=== PATIENT | female | born 2000 | race Caucasian/White ===

== ENCOUNTER 2019-10-04 20:46 | Emergency (ER) | END 2019-10-04 21:10 | disposition left against medical advice (07) | LOC: ER 20:46 | DX: Z53.21 Procedure and treatment not carried out due to patient leaving prior to being seen by health care provider (principal) ==

== ENCOUNTER 2019-10-13 10:57 | Emergency (ER) | payer OTHER ==
[2019-10-13 11:11] VITALS: BP 107/52
[2019-10-13] MEDS ORDERED: KETOROLAC TROMETHAMINE INJ/PF 30 MG/1 ML SDV IM ONE (11:15)
[2019-10-13] MEDS ORDERED: METHYLPREDNISOLONE INJ 125 MG/2 ML SDV IM ONE (11:15)
--- NOTE | 2019-10-13 11:19 | ER Document Report ---
HPI - HPI Time Seen by Provider: 10/13/19 11:03 Pain Level: 4 Notes: Patient is a 19-year-old female with no significant past medical history who presents complaining of lower back pain for the past 10 days without precipitating event or injury. Patient states the pain is to her lower back and does not radiate. Patient states that she will occasionally feel some tingling to the tip of her left hand and to her toes, but is not consistent. Patient states that she did have an x-ray as well as a urinalysis performed by an outside clinic which was unremarkable otherwise. She has been able to eat and drink without difficulty. She is urinating normally and having normal bowel movements. No history of diabetes, spinal abscess, back surgery, recent injections, or IV drug abuse. Denies any headache, fever, neck pain, changes in vision/speech/mentation/hearing, URI, sore throat, chest pain, palpitations, syncope, cough, shortness of breath, wheeze, dyspnea, abdominal pain, nausea/vomiting/diarrhea, urinary retention, dysuria, hematuria, loss of control of bowel or bladder, numbness, saddle anesthesia, muscle paralysis/weakness, or rash. - ROS Systems Reviewed and Negative: Yes All other systems reviewed and negative Past Medical History - Social History Smoking Status: Never Smoker Chew tobacco use (# tins/day): No Frequency of alcohol use: None Drug Abuse: None Family History: Reviewed & Not Pertinent Patient has suicidal ideation: No Patient has homicidal ideation: No Vertical Provider Document - CONSTITUTIONAL Agree With Documented VS: Yes Notes: PHYSICAL EXAMINATION: GENERAL: Well-appearing, well-nourished and in no acute distress. LUNGS: Breath sounds clear to auscultation bilaterally and equal. No wheezes rales or rhonchi. HEART: Regular rate and rhythm without murmurs, rubs, gallops. ABDOMEN: Soft, nontender, nondistended abdomen. No guarding, no rebound. Normal bowel sounds present. No CVA tenderness bilaterally. No pulsatile mass Musculoskeletal: LE's b/l: FROM to passive/active. Strength 5+/5. No deficits noted. No bony tenderness of extremities. Back: FROM to passive/active. Strength 5+/5. No vertebral point tenderness, stepoffs, or deformities. No other bony tenderness, erythema, swelling, or ecchymosis. SLR negative b/l. + mild tenderness to the L-paraspinal mm b/l. Mild spasming. No SI jt tenderness. No foot drop Extremities: No cyanosis, clubbing, or edema b/l. Peripheral pulses 2+. Capillary refill less than 2 seconds. NEUROLOGICAL: Normal speech, normal gait. Normal sensory, motor exams. Reflexes 2+ b/l. PSYCH: Normal mood, normal affect. SKIN: Warm, Dry, normal turgor, no rashes or lesions noted. - INFECTION CONTROL TRAVEL OUTSIDE OF THE [place] IN LAST 30 DAYS: No Course - Re-evaluation Re-evalutation: 10/13/19 11:17 I did review with Dr. Adames who is in agreement with dispo/plan: Patient is an afebrile, well-hydrated, 19-year-old female who presents to the ED with acute low back pain. Vitals are acceptable. PE is otherwise unremarkable for any focal neurological deficits. Patient was given Toradol and solumedrol IM. She has no significant tachycardia, tachypnea, or hypoxia. She is nontoxic-appearing and is tolerating p.o. without difficulties. There are no signs of infection. No other red flag symptoms noted. No other labs or imaging warranted at this time based on H&P. Low suspicion for any meningitis, fracture, expanding/ruptured AAA, cauda equina syndrome, epidural mass lesion/abscess, herniated disc causing severe spinal stenosis, or other systemic infection at this time. Patient is aware that this condition can change from initial presentation and that she needs monitor symptoms closely for any acute changes. Pt has naproxen and robaxin at home. Conservative measures otherwise for symptoms. Recheck with your PCM in 3-5 days. Consider consult with orthopedic/physical therapy. Return to the ED with any worsening/concerning symptoms otherwise as reviewed discharge. Patient is in agreement. - Vital Signs Vital signs: Temp Pulse Resp BP Pulse Ox 98.7 F 82 18 107/52 L 99 10/13/19 11:10 10/13/19 11:10 10/13/19 11:10 10/13/19 11:10 10/13/19 11:10 Discharge - Discharge Clinical Impression: Low back pain Qualifiers: Chronicity: acute Back pain laterality: bilateral Sciatica presence: without sciatica Qualified Code(s): M54.5 - Low back pain Condition: Stable Disposition: HOME, SELF-CARE Instructions: Low Back Pain ([facility]) Additional Instructions: Rest, Ice Tylenol/ibuprofen as needed Light stretches daily Strength exercises as able Moist heat and massage may help F/u with your PCP in 3-5 days for a recheck Consider consult(s) with Orthopedics/physical therapy for ongoing/worsening symptoms Return to the ED with any worsening symptoms and/or development of fever, headache, chest pain, palpitations, syncope, shortness of breath, trouble breathing, abdominal pain, n/v/d, blood in stool/urine, loss of control of bowel/bladder, urinary retention, muscle weakness/paralysis, saddle anesthesia, numbness/tingling, or other worsening symptoms that are concerning to you. Referrals: JERRY MANCIA JR, [ACTIVE PROVISIONAL STAFF] - Follow up as needed
== END 2019-10-13 12:12 | disposition home or self-care (01) ==
LOC: ER 10:57
DX: M54.5 Low back pain (principal); R20.2 Paresthesia of skin; R25.2 Cramp and spasm
CPT/HCPCS: J2930; J1885; 96372; 99283

== ENCOUNTER 2019-12-21 15:56 | Emergency (ER) | payer OTHER ==
--- NOTE | 2019-12-21 16:09 | ER Document Report ---
ED Medical Screen (RME) - General Chief Complaint: OB Problem (<20wks) Stated Complaint: ABDOMINAL PAIN Time Seen by Provider: 12/21/19 16:03 TRAVEL OUTSIDE OF THE [place] IN LAST 30 DAYS: No - HPI Notes: 12/21/19 16:07 19-year-old female 2 para 0, 6 weeks presents to the emergency room for nausea vomiting and abdominal pain. Has not tried any [id number] medication. Worse with time, nothing makes better. Patient lost her 2 other pregnancies and miscarriages at 7 and 9 weeks. No vaginal bleeding. Worse with time, nothing makes better. No fevers, chills. I have greeted and performed a rapid initial assessment of this patient. A comprehensive ED assessment and evaluation of the patient, analysis of test results and completion of the medical decision making process will be conducted by additional ED providers. PHYSICAL EXAMINATION: GENERAL: Well-appearing, well-nourished and in no acute distress. HEAD: Atraumatic, normocephalic. CV: s1, s2 regular LUNGS: No respiratory distress - Related Data Allergies/Adverse Reactions: No Known Allergies Allergy (Unverified 10/13/19 11:03) Physical Exam - Vital signs Vitals: Temp Pulse Resp BP Pulse Ox 98.1 F 70 18 130/62 H 97 12/21/19 15:59 12/21/19 15:59 12/21/19 15:59 12/21/19 15:59 12/21/19 15:59 Course - Vital Signs Vital signs: Temp Pulse Resp BP Pulse Ox 98.1 F 70 18 130/62 H 97 12/21/19 15:59 12/21/19 15:59 12/21/19 15:59 12/21/19 15:59 12/21/19 15:59
[2019-12-21 16:51] LABS: ABSOLUTE LYMPHOCYTES (AUTO) 2.9 10^3/uL (0.5-4.7); ABSOLUTE MONOCYTES (AUTO) 0.7 10^3/uL (0.1-1.4); ABSOLUTE NEUT (AUTO) 8.4 10^3/uL (1.7-8.2); BASOPHILS % (AUTO) 0.2 % (0-2); EOSINOPHILS % (AUTO) 0.3 % (0-6); HEMATOCRIT 40.8 % (36.0-47.0); HEMOGLOBIN 14.6 g/dL (12.0-15.5); LYMPHOCYTES % (AUTO) 23.9 % (13-45); MEAN CORPUSCULAR HEMOGLOBIN 32.5 pg (27.0-33.4); MEAN CORPUSCULAR HGB CONC 35.8 g/dL (32.0-36.0); MEAN CORPUSCULAR VOLUME 91 fl (80-97); PLATELET COUNT 253 10^3/uL (150-450); RED BLOOD COUNT 4.49 10^6/uL (3.72-5.28); RED CELL DISTRIBUTION WIDTH 12.6 % (11.5-14.0); SEGMENTED NEUTROPHILS % (AUTO) 69.6 % (42-78); TOTAL CELLS COUNTED % (AUTO) 100 %; WHITE BLOOD COUNT 12.1 10^3/uL (4.0-10.5)
[2019-12-21 16:59] LABS: APPEARANCE,URINE CLEAR; BILIRUBIN,URINE NEGATIVE (NEGATIVE); COLOR,URINE YELLOW; GLUCOSE, URINE NEGATIVE (NEGATIVE); KETONES,URINE NEGATIVE (NEGATIVE); LEUKOCYTE ESTERASE,URINE NEGATIVE (NEGATIVE); NITRITE,URINE NEGATIVE (NEGATIVE); PROTEIN,URINE NEGATIVE (NEGATIVE); URINE SPECIFIC GRAVITY 1.009; UROBILINOGEN,URINE NEGATIVE mg/dL (<2.0)
[2019-12-21 17:08] LABS: ALBUMIN 4.6 g/dL (3.5-5.0); ALKALINE PHOSPHATASE 51 U/L (38-126); ANION GAP 9 (5-19); ASPARTATE AMINO TRANSFERASE 19 U/L (14-36); BILIRUBIN,TOTAL 0.6 mg/dL (0.2-1.3); BLOOD UREA NITROGEN 4 mg/dL (7-20); CALCIUM 9.7 mg/dL (8.4-10.2); CARBON DIOXIDE 28 mmol/L (22-30); CHLORIDE 98 mmol/L (98-107); GLUCOSE 93 mg/dL (75-110); POTASSIUM 3.8 mmol/L (3.6-5.0); TOTAL PROTEIN 7.3 g/dL (6.3-8.2)
--- NOTE | 2019-12-21 17:30 | RADIOLOGY REPORT (SQ) ---
EXAM DESCRIPTION: U/S OB TRANSVAGINAL W/O DOP IMAGES COMPLETED DATE/TIME: 12/21/2019 5:17 pm REASON FOR STUDY: 6 weeks , vomiting, abd pain COMPARISON: None. TECHNIQUE: Transvaginal static and realtime grayscale images acquired of the pelvis. Additional ann cted spectral and color Doppler images recorded. All images stored on PACs. bHCG: Not available. CLINICAL DATES: 6 week 2 day. LIMITATIONS: None. FINDINGS: FETUS: Single Living intrauterine . ULTRASOUND EGA: 6 week 6 day. ULTRASOUND DANIELLE: 08/09/2020. EFW: Not applicable less than 20 weeks. CRL: 0.82 cm. FHR: 121 beats per minute. SURVEY: No visualized anomalies. AMNIOTIC FLUID: Adequate amount. PLACENTA: Not yet developed due to early gestation. SUBCHORIONIC BLEED: No. SIZE OF BLEED: Not applicable. UTERUS: No masses. No anomalies. CERVICAL LENGTH: 2.8 cm. Closed. RIGHT ADNEXA: Normal ovary with normal vascular flow. No adnexal free fluid. 2.2 cm complex cyst. LEFT ADNEXA: Normal ovary with normal vascular flow. No adnexal free fluid. No adnexal masses. FREE FLUID: None. OTHER: No other significant finding. IMPRESSION: LIVING INTRAUTERINE . EGA 6 WEEK 6 DAY. Trimester of : First trimester - 0 to 13 weeks. TECHNICAL DOCUMENTATION: JOB ID: [id number] 2010 [employer]- All Rights Reserved Reading location - IP/workstation name: [email or web address]
[2019-12-21] MEDS ORDERED: DEXTROSE 5%-LACTATED RINGERS 1,000 ML IV ONE (17:56)
[2019-12-21] MEDS ORDERED: METOCLOPRAMIDE HCL INJ/PF 10 MG/2 ML SDV IV ONE (17:56)
--- NOTE | 2019-12-21 18:05 | ER Document Report ---
ED General - General Chief Complaint: OB Problem (<20wks) Stated Complaint: ABDOMINAL PAIN Time Seen by Provider: 12/21/19 16:03 Primary Care Provider: BIMAL ALDRICH MD [Primary Care Provider] - Follow up as needed TRAVEL OUTSIDE OF THE [place] IN LAST 30 DAYS: No - HPI Notes: Chief complaint: Nausea/vomiting in first trimester HPI: 19-year-old 3 para 0-0-2-0 with 2 previous spontaneous miscarriages now presents at approximately 6 weeks gestation complaining of multiple episodes of nausea and vomiting. Mild abdominal cramping. No vaginal bleeding or disc harge. No fever. No dysuria. No back pain. She has not tried any medications for nausea. She reports 3-4 episodes of vomiting earlier today. She has had no care yet but has her first OB visit scheduled for tomorrow. Her primary care physician has her on vitamins and she is on no other regular medication. Prior medical history is otherwise unremarkable. No known allergies. - Related Data Allergies/Adverse Reactions: No Known Allergies Allergy (Unverified 10/13/19 11:03) Home Medications: , multivitamin Past Medical History - General Information source: Patient, [facility] Records - Social History Smoking Status: Never Smoker Family History: Reviewed & Not Pertinent Patient has homicidal ideation: No Neurological Medical History: Reports: Hx Migraine Past Surgical History: Reports: Hx Appendectomy Review of Systems - Review of Systems Notes: Constitutional: Negative for fever. HENT: Negative for sore throat. Eyes: Negative for visual changes. Cardiovascular: Negative for chest pain. Respiratory: Negative for shortness of breath. Gastrointestinal: As per HPI. Genitourinary: As per HPI. Musculoskeletal: Negative for back pain. Skin: Negative for rash. Neurological: Negative for headaches, weakness or numbness. 10 point ROS negative except as marked above and in HPI. Physical Exam - Vital signs Vitals: Temp Pulse Resp BP Pulse Ox 98.1 F 70 18 130/62 H 97 12/21/19 15:59 12/21/19 15:59 12/21/19 15:59 12/21/19 15:59 12/21/19 15:59 - Notes Notes: GENERAL: Slender female approximately stated age appearing in no acute distress. SKIN: Good turgor no rashes. Slightly pale. HEAD: Normocephalic atraumatic. EYES: PERRLA. EOMI. Conjunctivae and sclerae clear. EARS: CANALS AND TMS CLEAR. NOSE: CLEAR. MOUTH: Tacky oral mucosa. Good dentition. No stridor or edema. No drooling. NECK: Supple. No masses or thyromegaly. No adenopathy. Carotids 2+ without bruits. No JVD. BACK: Symmetrical without tenderness. CHEST: Respirations unlabored. Breath sounds clear and symmetrical. HEART: Regular rhythm. No murmur gallop or rub. ABDOMEN: Soft nontender without masses, organomegaly or rebound. Bowel sounds normally active. No bruits. GENITALIA: Deferred. EXTREMITIES: No edema. No calf tenderness. Cap refill less than 1.5 seconds. Dorsalis pedis and posterior tibial pulses 3+ and symmetrical. NEUROLOGICAL: GCS 15. Alert and oriented x3. Normal gait. Fluent speech. Cranial nerves II through XII intact. Sensorimotor and cerebellar normal. Normal tone. PSYCHIATRIC: Appropriate affect. Course - Re-evaluation Re-evalutation: 12/21/19 18:03 Radiologist reports ultrasound shows IUP at 6 weeks EGA with no abnormalities appreciated. CBC and comprehensive metabolic profile are normal. Lipase is normal. Urinalysis is normal. We will treat the patient with a liter of IV D5LR and some IV metoclopramide and then reassess. 12/21/19 18:04 12/21/19 20:08 Patient is asymptomatic at this time and tolerating oral fluids without difficulty. She wants to go home and I think this is appropriate. - Vital Signs Vital signs: Temp Pulse Resp BP Pulse Ox 98.1 F 70 18 130/62 H 97 12/21/19 16:01 12/21/19 15:59 12/21/19 15:59 12/21/19 15:59 12/21/19 15:59 - Laboratory Result Diagrams: 12/21/19 16:35 12/21/19 16:35 Laboratory results interpreted by me: 12/21/19 12/21/19 12/21/19 16:17 16:35 16:35 WBC 12.1 H Absolute Neuts (auto) 8.4 H Sodium 134.9 L BUN 4 L Beta HCG, Quant 90988.00 H Urine Ascorbic Acid 40 H - Diagnostic Test Radiology reviewed: Reports reviewed - Per radiologist: Normal IUP 6 weeks EGA. Discharge - Discharge Clinical Impression: associated emesis, IUP 6 weeks EGA Condition: Stable Disposition: HOME, SELF-CARE Additional Instructions: Hyperemesis Gravidarum Hyperemesis gravidarum is the medical term for severe vomiting during . We don't know exactly why it occurs, but it's a common problem. Dehydration can occur. This reduces blood flow to the placenta, decreasing the baby's nourishment. The baby will also become dehydrated. There can be harmful changes in blood sodium, potassium, or acid balance. Our goal is to correct, and prevent, dehydration. For severe cases, we give IV fluids. Antinausea medication will be prescribed. (Don't be concerned a bout " defects" -- the risk to you and your baby from the hyperemesis is the biggest problem. The antinausea medication is very safe at this stage of .) Call the doctor if you have vaginal bleeding, abdominal pain, severe lightheadedness or weakness, or other alarming symptoms. Take prescribed medications as instructed. Return here as needed for new or worsening symptoms. See your [employer]OR[facility] [employer]NAGER provider tomorrow as scheduled. Prescriptions: Pyridoxine HCl (Vitamin B6) [Pyridoxine HCl] 25 mg PO Q8H 10 Days #30 tablet Referrals: BIMAL ALDRICH MD [Primary Care Provider] - Follow up as needed
[2019-12-21 21:06] VITALS: BP 103/53
== END 2019-12-21 21:06 | disposition home or self-care (01) ==
LOC: ER 15:56
DX: O21.9 Vomiting of pregnancy, unspecified (principal); O26.891 Other specified pregnancy related conditions, first trimester; R23.1 Pallor; Z3A.01 Less than 8 weeks gestation of pregnancy; Z87.59 Personal history of other complications of pregnancy, childbirth and the puerperium; Z79.899 Other long term (current) drug therapy
CPT/HCPCS: 99284; 96361; 96374; 36415; 84702; 83690; 85025; 80053; 81001; 76817; J2765; J7121